=== PATIENT | female | born 1970 | race Caucasian/White ===

== ENCOUNTER 2023-04-24 16:59 | Emergency (ER) | payer OTHER, BC, SELFPAY ==
[2023-04-24] VITALS (18 sets, daily range): BP systolic 118–140; BP diastolic 74–91; PULSE 93–110; RESP 14–33; TEMP 36.7; O2SAT 98–100
--- NOTE | ~2023-04-24 | CT_ITS ---
Noncontrast CT scan of the cervical spine Technique: Multiple contiguous axial [address] images of the cervical spine were obtained and rec onstructed in 2D sagittal and coronal planes on the acquisition scanner. Dose reduction technique was used on this scan by utilizing automated exposure control, adjustment of the mA and/or kV according to patient size. The dose-length product (DLP) was 114.29 mGy-cm. Clinical History: Pain Findings: No fractures or dislocations. Unremarkable visualized bony structures. The intervertebral disc spaces are preserved. No prevertebral soft tissue swelling. Impression: No fracture or subluxation of the cervical spine. Reviewed, dictated and finalized at location . Impression: No fracture or subluxation of the cervical spine.
--- NOTE | ~2023-04-24 | CT_ITS ---
Non-contrast Head CT History: Trauma Technique: Axial non-contrast imaging of the brain was performed. Dose reduction technique was used on this scan by utilizing automated exposure control and iterative reconstruction technique. The dose -length product (DLP) was 605.33 mGy-cm. Findings: There is no evidence of intracranial hemorrhage, mass lesion, or acute infarct. Brain par enchyma appears normal. The ventricles and subarachnoid spaces are normal in size. The calvarium ap pears normal. The visualized paranasal sinuses and mastoid air cells are clear. Impression: No significant abnormality seen. Reviewed, dictated and finalized at location . Impression: No significant abnormality seen.
--- NOTE | 2023-04-24 17:09 | ECG_ITS ---
Measurements Intervals [place] Rate: 110 P: -90 NE: 131 QRS: 23 QRSD: 97 T: 80 QT: 261 QTc: 354 Interpretive Statements ECTOPIC ATRIAL TACHYCARDIA CANNOT RULE OUT SEPTAL INFARCT, AGE INDETERMINATE BORDERLINE ST-T WAVE ABNORMALITY- DIFFUSE LEADS BASELINE ARTIFACT- II, III ABNORMAL ECG NO PREVIOUS ECG AVAILABLE FOR COMPARISON Electronically Signed On 04-24-2023 20:54:43 CDT by Cody Fink D.O.
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
[2023-04-24 18:00] LABS: Basophils Percent Auto 0.4 % (0.2-1.2); Eosinophils Absolute Auto 0.2 K/mm3 (0-0.3); Eosinophils Percent Auto 2.6 % (0-4.4); Hematocrit 35.6 % (37.0-47.0); Hemoglobin 11.6 g/dL (12.0-15.0); Immature Granulocyte Absolute 0.03 K/mm3 (0.00-0.031); Immature Granulocyte Percent A 0.3 % (0-0.5); Lymphocytes Absolute Auto 1.89 K/mm3 (0.9-3.2); Lymphocytes Percent Auto 20.6 % (18.3-44.2); Mean Corpuscular HGB Conc 32.6 g/dl (32-36); Mean Corpuscular Hemoglobin 30.6 pg (26-34); Mean Corpuscular Volume 93.9 fl (80-100); Mean Platelet Volume 9.1 fl (7.4-10.4); Monocytes Absolute Auto 0.8 K/mm3 (0.1-0.6); Monocytes Percent Auto 8.4 % (2.6-8.5); Neutrophils Absolute Auto 6.2 K/mm3 (1.3-6.7); Neutrophils Percent Auto 67.7 % (45.5-73.1); Platelet Count Result 337 k/mm3 (150-375); Red Blood Count 3.79 M/mm3 (4.2-5.4); Red Cell Distribution Width 12.1 % (11.5-14.5); White Blood Count 9.2 K/mm3 (4.5-10.0)
[2023-04-24 18:09] LABS: Ethanol < 10 mg/dL (<10)
[2023-04-24 18:36] LABS: Appearance Urine Clear (Clear); Bacteria Urine None Seen /hpf; Bilirubin Urine Negative (Negative); Blood Urine Negative (Negative); Color Urine Yellow (Yellow); Glucose Urine UA Negative (Negative); Ketones Urine Negative (Negative); Leukocyte Esterase Ur 1+ LEU/UL (Negative); Nitrate Urine Negative (Negative); Non Pathogenic Casts 0-2; Protein Urine Trace mg/dL (Negative); RBC Urine 0-2 /hpf (0-2); Specific Grav Ur 1.016 (1.001-1.035); Squamous Epithelial Cell Urine Few /hpf (Few); Urobilinogen Urine 0.2 mg/dL (<2.0); pH Urine 5.5 (5.0-9.0)
[2023-04-24 18:38] LABS: Add Urine Microscopic? YES
[2023-04-24 18:50] LABS: Alanine Aminotransferase 30 U/L (6-35); Albumin Level 4.2 g/dL (3.5-5.1); Alkaline Phosphatase 64 U/L (38-126); Anion Gap 9 mmol/L (8-16); Aspartate Amino Transferase 28 U/L (14-36); Bilirubin,Total 0.3 mg/dL (0.2-1.3); Blood Urea Nitrogen 14 mg/dL (7-17); Calcium 8.9 mg/dL (8.4-10.2); Carbon Dioxide 27 mmol/L (22-30); Chloride 103 mmol/L (98-107); Estimated CRCL calculation 80 ml/min; Estimated Glomerular Filt Rate > 60; Glucose 127 mg/dL (65-110); Potassium 2.8 mmol/L (3.4-5.0); Sodium 139 mmol/L (137-145)
--- NOTE | 2023-04-24 19:00 | PC.NURSE ---
Assumed care of pt. Report given by KAREN Chavez.
[2023-04-24] MEDS: POTASSIUM BICARBONATE 25 MEQ TABEF 50 MEQ PO (20:17)
[2023-04-24 20:21] LABS: Magnesium 1.5 mg/dL (1.6-2.3)
[2023-04-24] MEDS: MAGNESIUM CHLORIDE 64 MG TABLET PO (22:23)
== END 2023-04-24 22:35 | disposition home or self-care (01) ==
PROVIDERS: Emergency Provider Student in an Organized Health Care Education/Training Program; PCP Family Medicine
DX: S09.90XA Unspecified injury of head, initial encounter (principal); E87.6 Hypokalemia; E83.42 Hypomagnesemia; V47.5XXA Car driver injured in collision with fixed or stationary object in traffic accident, initial encounter
CPT/HCPCS: 36415; 70450; 72125; 80053; 80307; 81001; 81025; 83735; 85025; 87086; 87147; 87181; 87186; 93005; 99284; A9270

== ENCOUNTER 2024-12-21 16:35 | Emergency (ER) | payer BC, SELFPAY ==
--- NOTE | ~2024-12-21 | XR_ITS ---
XR chest 1V Ordering provider: Grace Castro PA-C History: 54 years Female with . AMS . Comparison: None. FINDINGS: MEDIASTINUM: The cardiac silhouette is not enlarged. LUNGS: No infiltrates, effusions or pneumothorax. OTHER: No free air under the diaphragm. IMPRESSION: No acute cardiopulmonary pathology. Reviewed, dictated and finalized at location A.
--- NOTE | ~2024-12-21 | CT_ITS ---
CT brain wo con Ordering provider: Grace Castro PA-C History: 54 years Female with . AMS, head injury yesterday . Comparison: None. Technique: CT of the head without contrast. Radiation reduction technique utilized.The dose-length pr oduct was 787.51 mGy-cm. FINDINGS: BRAIN PARENCHYMA AND CSF SPACES: No midline shift, mass effect or hemorrhage. The brain parenchyma a nd CSF spaces are otherwise normal. VISUALIZED PARANASAL SINUSES: Well aerated. MASTOIDS: Well aerated. BONES: The bones appear intact. SOFT TISSUES: Visualized nasopharynx is normal. Superficial soft tissues are normal. IMPRESSION: No acute intracranial findings. Reviewed, dictated and finalized at location A.
--- NOTE | ~2024-12-21 | CT_ITS ---
CT cervical spine wo con Ordering provider: Grace Castro PA-C History: . head injury yesterday . Comparison: May 21, 2023 Technique: CT of the cervical spine was performed without contrast. Sagittal and coronal reformatted images were also obtained and reviewed. Automated exposure control and iterative reconstruction katie hnique were employed. The dose-length product was 246.00 mGy-cm. FINDINGS: VERTEBRAE: No subluxation or acute fracture. The occipital condyles are intact. Bifid posterior arch of C1. DISC SPACES: Narrowing of the disc C6-C7. Narrowing of the right foramen at the level of C5-C6 and C6 -7. Multilevel uncovertebral joint osteoarthritic changes PARASPINOUS SOFT TISSUES: Normal. 4 mm nodule is seen in the right lung upper lobe . 6 months follow-up CT is advised. IMPRESSION: No acute osseous abnormality cervical spine. Degenerative disc changes at the level of C6-C7. Nodule in the right lung upper lobe. 6 follow-up CT is Reviewed, dictated and finalized at location A.
[2024-12-21 16:45] VITALS: BP 121/73; PULSE 95; RESP 18; TEMP 36.6; O2SAT 98
[2024-12-21 16:46] VITALS: BP 121/73; PULSE 96; RESP 21; TEMP 36.7; O2SAT 98
--- NOTE | 2024-12-21 17:28 | ECG_ITS ---
Test Date: 2024-12-21 19:15:26 Measurements Intervals [place] Rate: 85 P: 68 PA: 171 QRS: 62 QRSD: 92 T: 71 QT: 400 QTc: 478 Interpretive Statements SINUS RHYTHM No previous ECG available for comparison Electronically Signed On 12-21-2024 19:18:15 CDT by Bony Rodgers
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
[2024-12-21 18:00] VITALS: BP 114/72; PULSE 89; RESP 16; O2SAT 98
[2024-12-21 18:06] LABS: Basophils Absolute Auto 0.1 K/mm3 (0.0-0.1); Basophils Percent Auto 0.9 % (0.2-1.2); Eosinophils Absolute Auto 0.3 K/mm3 (0-0.3); Eosinophils Percent Auto 3.2 % (0-4.4); Hematocrit 39.5 % (37.0-47.0); Hemoglobin 12.6 g/dL (12.0-15.0); Immature Granulocyte Absolute 0.07 K/mm3 (0.00-0.031); Immature Granulocyte Percent A 0.9 % (0-0.5); Lymphocytes Absolute Auto 2.61 K/mm3 (0.9-3.2); Lymphocytes Percent Auto 32.1 % (18.3-44.2); Mean Corpuscular HGB Conc 31.9 g/dl (32-36); Mean Corpuscular Hemoglobin 29.6 pg (26-34); Mean Corpuscular Volume 92.9 fl (80-100); Mean Platelet Volume 8.4 fl (7.4-10.4); Monocytes Absolute Auto 0.7 K/mm3 (0.1-0.6); Monocytes Percent Auto 9.1 % (2.6-8.5); Neutrophils Absolute Auto 4.4 K/mm3 (1.3-6.7); Neutrophils Percent Auto 53.8 % (45.5-73.1); Platelet Count Result 391 k/mm3 (150-375); Red Blood Count 4.25 M/mm3 (4.2-5.4); Red Cell Distribution Width 13.3 % (11.5-14.5); White Blood Count 8.1 K/mm3 (4.5-10.0)
[2024-12-21] MEDS: LORazepam INJ (*CRX) 2 MG/ML VIAL 1 MG IV PUSH (18:18)
[2024-12-21 18:21] LABS: Alanine Aminotransferase 24 U/L (6-35); Albumin Level 4.5 g/dL (3.5-5.1); Alkaline Phosphatase 78 U/L (38-126); Anion Gap 11 mmol/L (4-12); Aspartate Amino Transferase 38 U/L (14-36); Bilirubin,Total 0.3 mg/dL (0.2-1.3); Blood Urea Nitrogen 22 mg/dL (7-17); Calcium 8.6 mg/dL (8.4-10.2); Carbon Dioxide 26 mmol/L (22-30); Chloride 108 mmol/L (98-107); Estimated CRCL calculation 69 ml/min; Estimated Glomerular Filt Rate > 60; Ethanol 193 mg/dL (<10); Glucose 90 mg/dL (65-110); Potassium 4.3 mmol/L (3.4-5.0); Sodium 145 mmol/L (137-145)
[2024-12-21 18:30] VITALS: O2SAT 99
[2024-12-21 18:34] LABS: Add Urine Microscopic? NO; Appearance Urine Clear (Clear); Bilirubin Urine Negative (Negative); Blood Urine Negative (Negative); Color Urine Yellow (Yellow); Glucose Urine UA Negative (Negative); Ketones Urine Negative (Negative); Leukocyte Esterase Ur Negative LEU/UL (Negative); Nitrate Urine Negative (Negative); Protein Urine Negative (Negative); Specific Grav Ur 1.018 (1.001-1.035); Urobilinogen Urine 0.2 mg/dL (<2.0); pH Urine 6.5 (5.0-9.0)
[2024-12-21 18:34] LABS: Troponin I < 0.012 ng/mL (0.000-0.034)
[2024-12-21 18:47] LABS: Amphetamine Screen Urine Negative (Negative); Barbiturate Screen Urine Negative (Negative); Benzodiazepines Screen Urine Negative (Negative); Cannabinoid Screen Urine Negative (Negative); Cocaine Screen Urine Negative (Negative); Methadone Screen Urine Negative (Negative); Opiate Screen Urine Negative (Negative); Phencyclidine Screen Urine Negative (Negative)
[2024-12-21 18:52] LABS: Thyroid Stimulating Hormone 0.769 uIU/mL (0.465-4.680)
[2024-12-21 19:04] LABS: Creatine Kinase 52 U/L (30-135)
--- NOTE | 2024-12-21 19:09 | PC.NURSE ---
Pt & son in waiting room. Update given by aviation mechanic
[2024-12-21 20:32] VITALS: BP 107/72; PULSE 89; PULSE 90; RESP 16; O2SAT 98
[2024-12-21 23:46] VITALS: BP 128/87; PULSE 98; RESP 16; O2SAT 98
--- NOTE | 2024-12-21 23:47 | PC.NURSE ---
Pt given water and repositioned in bed. Call light within reach. No further requests at this time.
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
--- NOTE | 2024-12-22 01:11 | PC.NURSE ---
Pt moved from room 6 to room 19 per orders of discharge coordinator Mandy. Pt to see care coordination in the morning.
--- NOTE | 2024-12-22 03:54 | PC.NURSE ---
In to check on pt. Pt c/o headache and requesting meds. Will obtain orders.
[2024-12-22] MEDS: ACETAMINOPHEN 325 MG TABLET 650 MG PO (04:01)
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
--- NOTE | 2024-12-22 06:20 | PC.NURSE ---
Pt move from room 19 to room 1 per Lindsey assembly line inspector. Pt repositioned in bed and has no requests at this time.
[2024-12-22 07:15] VITALS: BP 131/89; PULSE 93; RESP 20; O2SAT 100
--- OUTSIDE RECORDS SUMMARY | 2024-12-22 15:02 | XMS_ITS | Encounter Summary ---
Author Organization [facility] Address [facility] [place] [address] Care Team Providers Care Mine Patrol Name Role Phone Araceli Bartlett MD Primary Care Provider [phone] Encounter Details Date Type Department Care Team (Late Contact Info) Description 07/22/2022 [employer] [facility][Note 3] Patient Accounts [address] [place] [address] [employer] [place], [facility] Provider Monthly Credit Card Payment Social History Tobacco Use Types Packs/Day Years Used Date Smoking Tobacco: Never Smokeless Tobacco: Never Alcohol Use Standard Drinks/Week Comments Never 0 (1 standard drink = 0.6 oz pur e alcohol) PHQ-2 Answer Date Recorded PHQ-2 Score - If the patient scores above 3, please move on to questions 3-9 0 05/12/2022 Comments No Sex and Gender Information Value Date Recorded Sex Assigned at Female 09/20/2024 2:28 PM ENGINE ASSEMBLER Legal Sex Female 7:13 PM CDT Gender Identity Female 09/25/2024 3:57 PM ENGINE ASSEMBLER Sexual Orientation Not on file COVID-19 Exposure Response Date Recorded In the last 10 days, have yo u been in contact with someone who was confirmed or suspected to have Coronavirus/COVID-19? No / Unsure 07/01/2022 9:07 AM ENGINE ASSEMBLER documented as of this encounter Plan of Treatment Upcoming Encounters Date Type Department Care Team (Late Contact Info) Description 12/27/2024 3:40 PM CDT Office Visit [facility] Family & Internal Medicine - [place] [address] [address] [place] [phone] [place] [address] [facility]. [address] [place] [address] 01/11/2025 9:40 AM CDT Office Visit [facility] Care - [facility] 3 [facility], [address] [place] [address] Taylor Zamora NP 3 [facility] [address] [place] [address] documented as of this encounter Visit Diagnoses Not on filedocumented in this encounter Additional Health Concerns Infection Onset Date Last Indicated Resolved Time Respiratory Rule-Out 10/18/2024 10/18/2024 025 4:46 PM ENGINE ASSEMBLER Assessment Noted Time PHQ-9 Depression Total Score: 0 05/12/20 22 2:48 PM CDT documented as of this encounter Care Teams Mine Patrol Relationship Specialty [place] [address] [facility] [address] [place] [address] PCP - General FAMILY PRACTICE 05/12/22 documented as of this encounter
--- OUTSIDE RECORDS SUMMARY | 2024-12-22 15:02 | XMS_ITS | Clinical Summary ---
Author Organization [facility] Address [address] [place] [address] Care Team Providers Care Biochemist Name Role Phone Yaneth Alan Primary Care Provider Unavailab le Source Comments [facility],non-owned Affiliates and Associated Physician Practices is amultiple site organization consisting of ambulatory clinics and hospital sitesin [place], [place], [place] and [place]. This disclosure is being madepursuant to the Care Everywhere program and may not contain all information available regarding this patient. Last updated 18.[facility] [employer] Active Problems Problem Noted Date Diagnosed Date Drug overdose of undetermined intent, initial en counter 10/27/2023 Social History Tobacco Use Types Packs/Day Years Used Date Smoking Tobacco: Never Assessed Comments Unknown Sex and Gender Information Value Date Recorded Sex Assigned at Not on file Legal Sex Female 5:51 PM INSOLE RASPER Gender Identity Not on file Sexual Orientation Not on file Plan of Treatment Health Maintenance Due Date Last Done Comments COLOGUARD (AGES 45-75) - COL ON CA SCREENING 1969 COLON MONITORING 1969 COLONOSCOPY - COLON CA SCREENING 1969 CT COLONOGRAPHY - COLON CA SCREENING 1969 Colorectal Cancer Screening 1969 FIT - COLON CA SCREENING 1969 FLEX SIG - COLON CA SCREENING 1969 LIPID TESTING 1969 MAMMOGRAM 1969 PAP SMEAR 1969 HIV SCREENING 1984 HEPATITIS C SCREENING 08/24/1987 DTAP/TDAP/TD VACCINES (1 - Tdap) 1988 HEPATITIS B VACCINE (1 of 3 - 19+ 3-dose series) 1988 PNEUMOCOCCAL VACCINE 50+ (1 of 1 - PCV) 2019 ZOSTER VACCINE (1 of 2) 2019 COVID-19 VACCINE (1 - 2023-2 5 season) 2024 DEPRESSION SCREENING 08/22/2024 INFLUENZA VACCINE (Season Ended) 2025 HIB VACCINE Aged Out No longer eligi ble based on patient's age to complete this topic HPV VACCINE Aged Out No longer eligi ble based on patient's age to complete this topic MENINGOCOCCAL (Group B) VACC INE SHARED DECISION-MAKING Aged Out No longer eligibl e based on patient's age to complete this topic MENINGOCOCCAL GROUPS A/C/Y/W VACCINE Aged Out No longer eligible b ased on patient's age to complete this topic Care Teams Biochemist Relationship Specialty Start Date End Date Yaneth Alan Update Information PCP - General 06/16/16
--- OUTSIDE RECORDS SUMMARY | 2024-12-22 15:02 | XMS_ITS | Encounter Summary ---
Author Organization [facility] Address [address] [place] [address] Care Team Providers Care Agri Business Agent Name Role Phone Cheryle Pitts NP Primary Care Provider Araceli Anderson MD Primary Care Provider [phone] Encounter Details Date Type Department Care Team (Late Contact Info) Description 08/21/2021 [employer] Message Enc [facility] Medical Group Family & Internal Medicine [address] [address] Cheryle Pitts, SANDY Sinus infection Social History Tobacco Use Types Packs/Day Years Used Date Smoking Tobacco: Never Smokeless Tobacco: Never Alcohol Use Standard Drinks/Week Comments Never 0 (1 standard drink = 0.6 oz pur e alcohol) PHQ-2 Answer Date Recorded PHQ-2 Score - If the patient scores above 3, please move on to questions 3-9 1 08/06/2021 Comments Unknown Sex and Gender Information Value Date Recorded Sex Assigned at Female 09/20/2024 2:28 PM COMPUTER NUMERICAL CONTROL PROGRAMMER Legal Sex Female 7:13 PM CDT Gender Identity Female 09/25/2024 3:57 PM COMPUTER NUMERICAL CONTROL PROGRAMMER Sexual Orientation Not on file COVID-19 Exposure Response Date Recorded In the last month, have you been in contact with someone who was confirmed or suspected to have Coronavirus / COVID-19? No / Unsure 08/06/2021 10:09 AM COMPUTER NUMERICAL CONTROL PROGRAMMER documented as of this encounter Plan of Treatment Upcoming Encounters Date Type Department Care Team (Late Contact Info) Description 12/27/2024 3:40 PM CDT Office Visit [facility] Family & Internal Medicine - [place] [address] [place] [phone] [place] [address] [facility]. [address] [place] [address] 01/11/2025 9:40 AM CDT Office Visit [facility] Multispecialty Care - [facility] 3 [facility], [address] [place] [address] Taylor Zamora NP 3 [facility] [address] [place] [address] documented as of this encounter Visit Diagnoses Not on filedocumented in this encounter Additional Health Concerns Infection Onset Date Last Indicated Resolved Time Respiratory Rule-Out 10/18/2024 10/18/2024 025 4:46 PM COMPUTER NUMERICAL CONTROL PROGRAMMER Assessment Noted Time PHQ-9 Depression Total Score: 1 08/06/20 21 10:29 AM COMPUTER NUMERICAL CONTROL PROGRAMMER documented as of this encounter Care Teams Agri Business Agent Relationship Specialty Start Date End Date Cheryle Pitts, GARMENT EXAMINER PCP - General NURSE PRACTITIONER 07/13/21 05/11/22 [place] [address] [facility] [place]. [address] [place] [address] PCP - General FAMILY PRACTICE 05/12/22 documented as of this encounter
--- OUTSIDE RECORDS SUMMARY | 2024-12-22 15:02 | XMS_ITS | Encounter Summary ---
Author Organization [facility] Address [address] [place] [address] Care Team Providers Care Drapery Supervisor Name Role Phone Cheryle Pitts NP Primary Care Provider Araceli Anderson MD Primary Care Provider [phone] Encounter Details Date Type Department Care Team (Late Contact Info) Description 07/27/2021 [employer] Message Enc [facility] Family & Internal Medicine [address] [address] Cheryle Pitts NP Follow-up appt. Social History Tobacco Use Types Packs/Day Years Used Date Smoking Tobacco: Never Smokeless Tobacco: Never PHQ-2 Answer Date Recorded PHQ-2 Score - If the patient scores above 3, please move on to questions 3-9 1 07/13/2021 Comments Unknown Sex and Gender Information Value Date Recorded Sex Assigned at Female 09/20/2024 2:28 PM PUBLIC SAFETY OFFICER Legal Sex Female 7:13 PM CDT Gender Identity Female 09/25/2024 3:57 PM PUBLIC SAFETY OFFICER Sexual Orientation Not on file COVID-19 Exposure Response Date Recorded In the last month, have you been in contact with someone who was confirmed or suspected to have Coronavirus / COVID-19? No / Unsure 07/13/2021 4:19 PM PUBLIC SAFETY OFFICER documented as of this encounter Plan of Treatment Upcoming Encounters Date Type Department Care Team (Late Contact Info) Description 12/27/2024 3:40 PM CDT Office Visit [facility] Family & Internal Medicine - [place] [address] [place] [phone] [place] [address] [facility] [place]. [address] [place] [address] 01/11/2025 9:40 AM CDT Office Visit [facility] Multispecialty Care - [facility] 3 [facility], [address] [place] [address] Taylor Zamora NP 3 [facility] [address] [place] [address] documented as of this encounter Visit Diagnoses Not on filedocumented in this encounter Additional Health Concerns Infection Onset Date Last Indicated Resolved Time Respiratory Rule-Out 10/18/2024 10/18/2024 025 4:46 PM PUBLIC SAFETY OFFICER Assessment Noted Time PHQ-9 Depression Total Score: 1 07/13/20 4:33 PM PUBLIC SAFETY OFFICER documented as of this encounter Care Teams Drapery Supervisor Relationship Specialty Start Date End Date Cheryle Pitts NP PCP - General NURSE PRACTITIONER 07/13/21 05/11/22 [place] [address] [facility] [place]. [address] [place] [address] PCP - General FAMILY PRACTICE 05/12/22 documented as of this encounter
--- OUTSIDE RECORDS SUMMARY | 2024-12-22 15:02 | XMS_ITS | Encounter Summary ---
Author Organization [facility] Address [address] [place] [address] Care Team Providers Care Dry Press Operator Name Role Phone Araceli Bartlett MD Primary Care Provider [phone] Encounter Details Date Type Department Care Team (Late st Contact Info) Description 09/15/2022 [employer] Message Enc [facility] Medical Group Family & Internal Medicine [facility] [address] [place] [address] [place] [id number] [place] [address] Appt. Social History Tobacco Use Types Packs/Day Years Used Date Smoking Tobacco: Never Smokeless Tobacco: Never Alcohol Use Standard Drinks/Week Comments Never 0 (1 standard drink = 0.6 oz pur e alcohol) PHQ-2 Answer Date Recorded Patient Health Questionnaire-2 Score 0 09/17/2022 Comments No Sex and Gender Information Value Date Recorded Sex Assigned at Female 09/20/2024 2:28 PM BULK PIGMENT REDUCER Legal Sex Female 7:13 PM CDT Gender Identity Female 09/25/2024 3:57 PM BULK PIGMENT REDUCER Sexual Orientation Not on file COVID-19 Exposure Response Date Recorded In the last 10 days, have yo u been in contact with someone who was confirmed or suspected to have Coronavirus/COVID-19? No / Unsure 09/17/2022 3:50 PM BULK PIGMENT REDUCER documented as of this encounter Functional Status * Over the past 2 weeks, how often have you been bothered by any of the following problems? Question Answer Date of Assessment Author Status Little interest or pleasure in doing things Not at all 09/17/2022 3:59 PM BULK PIGMENT REDUCER Cheryle Sharma MA Active Feeling down, depressed, or hopeless Not at all 09/17/2022 3:59 PM BULK PIGMENT REDUCER Cheryle Sharma MA Active Patient Health Questionnaire-2 Score 0 09/17/2022 3:59 PM BULK PIGMENT REDUCER Cheryle Sharma MA Act belkis documented as of this encounter Plan of Treatment Upcoming Encounters Date Type Department Care Team (Late st Contact Info) Description 12/27/2024 3:40 PM CDT Office Visit [facility] Family & Internal Medicine - [place] [address] [place] [address] [place] [address] [facility]. [address] [place] [address] 01/11/2025 9:40 AM CDT Office Visit [facility] Multispecialty Care - [facility] 3 [facility], [address] [place] [phone] Taylor Zamora NP 3 [facility] [address] [place] [address] documented as of this encounter Visit Diagnoses Not on filedocumented in this encounter Additional Health Concerns Infection Onset Date Last Indicated Resolved Time Respiratory Rule-Out 10/18/2024 10/18/2024 025 4:46 PM BULK PIGMENT REDUCER Assessment Noted Time PHQ-9 Depression Total Score: 0 05/12/20 22 2:48 PM CDT documented as of this encounter Care Teams Dry Press Operator Relationship Specialty [place] [address] [facility] [place] [address] PCP - General FAMILY PRACTICE 05/12/22 documented as of this encounter
--- OUTSIDE RECORDS SUMMARY | 2024-12-22 15:02 | XMS_ITS | Encounter Summary ---
Author Organization [facility] Address [address] [place] [address] Care Team Providers Care Centerless Grinder Operator Name Role Phone Araceli Bartlett MD Primary Care Provider [phone] Encounter Details Date Type Department Care Team (Late st Contact Info) Description 05/04/2023 MyChart Message Enc [facility] Family & Internal Medicine [address] [address] [place] [address] [facility]. [address] [place] [address] Follow up appt. Tomorrow Social History Tobacco Use Types Packs/Day Years Used Date Smoking Tobacco: Never Smokeless Tobacco: Never Alcohol Use Standard Drinks/Week Comments Never 0 (1 standard drink = 0.6 oz pur e alcohol) PHQ-2 Answer Date Recorded Patient Health Questionnaire-2 Score 0 01/05/2023 Comments No Sex and Gender Information Value Date Recorded Sex Assigned at Female 09/20/2024 2:28 PM POLICYHOLDER INFORMATION CLERK Legal Sex Female 7:13 PM CDT Gender Identity Female 09/25/2024 3:57 PM POLICYHOLDER INFORMATION CLERK Sexual Orientation Not on file documented as of this encounter Plan of Treatment Upcoming Encounters Date Type Department Care Team (Late st Contact Info) Description 12/27/2024 3:40 PM CDT Office Visit [facility] Family & Internal Medicine [facility] [address] [place] [address] [place] [address] [facility]. [address] [place] [address] 01/11/2025 9:40 AM CDT Office Visit [facility] Medical [facility] Multispecialty Care - [facility] 3 [facility], [address] [place] [phone] Taylor Zamora NP 3 [facility] [address] [place] [address] documented as of this encounter Visit Diagnoses Not on filedocumented in this encounter Additional Health Concerns Infection Onset Date Last Indicated Resolved Time Respiratory Rule-Out 10/18/2024 10/18/2024 025 4:46 PM POLICYHOLDER INFORMATION CLERK Assessment Noted Time PHQ-9 Depression Total Score: 0 05/12/20 22 2:48 PM CDT documented as of this encounter Care Teams Centerless Grinder Operator Relationship Specialty [place] [address] [facility] [place]. [address] [place] [id number] PCP - General FAMILY PRACTICE 05/12/22 documented as of this encounter
--- OUTSIDE RECORDS SUMMARY | 2024-12-22 15:02 | XMS_ITS | Encounter Summary ---
Author Organization [facility] Address [address] [place] [address] Care Team Providers Care Urologist Md Name Role Phone Cheryle Pitts NP Primary Care Provider Araceli Anderson MD Primary Care Provider [phone] Encounter Details Date Type Department Care Team (Late Contact Info) Description 09/17/2021 [employer] Message [employer] HEALTH INFORMATION MANAGEMENT [address] [place] [address] [employer], [facility] Provider Proxy Access Request Social History Tobacco Use Types Packs/Day Years [...] Sex Assigned at Female 09/20/2024 2:28 PM CONTENT DIRECTOR Legal Sex Female 7:13 PM CDT Gender Identity Female 09/25/2024 3:57 PM CONTENT DIRECTOR Sexual Orientation Not on file documented as of this encounter Plan of Treatment Upcoming Encounters Date Type Department Care Team (Late Contact Info) Description 12/27/2024 3:40 PM CDT Office Visit [facility] Medical Group Family & Internal Medicine [address] [address] Araceli Bartlett MD [address] [place] [address] [place] [address] 01/11/2025 9:40 AM CDT Office Visit [facility] Medical Group Multispecialty Care - [facility] 3 [facility], [address] [place] [address] Taylor Zamora, E LEARNING DEVELOPER 3 [facility] [address] [place] [address] documented as of this encounter Visit Diagnoses Not on filedocumented in this encounter Additional Health Concerns Infection Onset Date Last Indicated Resolved Time Respiratory Rule-Out 10/18/2024 10/18/2024 025 4:46 PM CONTENT DIRECTOR Assessment Noted Time PHQ-9 Depression Total Score: 1 08/06/20 10:29 AM CONTENT DIRECTOR documented as of this encounter Care Teams Urologist Md Relationship Specialty Start Date End Date Cheryle Pitts, SANDY PCP - General NURSE PRACTITIONER 07/13/21 05/11/22 [place] [address] [address] [place] [address] PCP - General FAMILY PRACTICE 05/12/22 documented as of this encounter
--- OUTSIDE RECORDS SUMMARY | 2024-12-22 15:02 | XMS_ITS | Clinical Summary ---
Author Organization [facility] Address [address] [place] [address] Care Team Providers Care Communications Coordinator Name Role Phone Araceli Vela MD Primary Care Provider [phone] Allergies Active Allergy Reactions Criticality Noted Date Comments Sulfamethoxazole-Trimethoprim Anxiety Low 2023 Medications amLODIPine (NORVASC) 5 MG tabletIndications :Primary hypertension Take 1.5 tablets (7.5 mg total) by mouth daily. 45 tablet 11 4 Active propranolol (INDERAL) 10 MG tabletIndications :Generalized anxiety disorder,Palpitat ions Take 1 tablet (10 mg total) by mouth 3 (three) times daily as needed (palpitatio ns , high heart rate or sever anxiety). Max 30 mg in 24 hrs 45 tablet 5 5 Active hydrOXYzine (VISTARIL) 50 MG capsuleIndication s:Generalized anxiety disorder Take 1 capsule (50 mg total) by mouth daily as needed for Anxiety (sleep). 30 capsule 3 5 Active hydrOXYzine (VISTARIL) 50 MG capsuleIndication s:Generalized anxiety disorder Take 1 capsule (50 mg total) by mouth daily as needed for Anxiety (sleep). 15 capsule 11 4 11/24/19 25 Discontinu ed(Reorder ) Active Problems Problem Noted Date Diagnosed Date Generalized anxiety disorder 05/18/2024 Primary hypertension 05/18/2024 Chronic anemia 05/18/2024 Amitriptyline overdose 10/27/2023 Drug overdose of undetermined intent, initial en counter 10/27/2023 Chronic migraine without aur a without status migrainosus, not intractable 05/13/2023 MGUS (monoclonal gammopathy of unknown significa nce) 09/30/2016 Encounters Date Type Department Care Team Description 11/23/2024 Orders Only [facility] [address] [phone] Iris Nuno 11/09/2024 2:40 PM CDT Allied Health/Nurse Visit [facility] [address] [phone] Araceli Vela MD Imm/Inj 11/09/2024 Travel 10/25/2024 7:40 AM TRAVERSE ROD ASSEMBLER Office Visit [address] [phone] Araceli Vela MD Anxiety; Headache 10/25/2024 Travel 10/18/2024 5:12 PM TRAVERSE ROD ASSEMBLER - 10/18/2024 11:59 PM TRAVERSE ROD ASSEMBLER Hospital Encounter [address] [phone] Mariza Horne, [place] Discharge Disposition: Home or Self Care (Routine Discharge) 10/18/2024 4:00 PM TRAVERSE ROD ASSEMBLER Office Visit [address] [phone] Mariza Horne, [place] Runny Nose (Sorethroat,, fatigue-x 2 days) 10/18/2024 Travel 10/17/[address] [phone] Araceli Vela MD Error 10/12/2024 Telephone [facility] [address] [phone] Araceli Vela MD Question 09/25/2024 4:20 PM TRAVERSE ROD ASSEMBLER Office Visit [facility] Family & Internal Medicine [facility] [address] [place] [address] Araceli Vela MD Follow Up 09/25/2024 8:58 AM TRAVERSE ROD ASSEMBLER - 09/25/2024 11:59 PM TRAVERSE ROD ASSEMBLER Hospital Encounter [facility] [address] [place] [address] Araceli Vela MD Discharge Disposition: Home or Self Care (Routine Discharge) 09/25/2024 Scan [facility] SRV[facility] Scanned, [facility] 09/25/2024 Travel from Last 3 Months Immunizations Immunization Administration Dates Next Due Flucelvax 6 Months+ (Prefill ed Syringe) 09/23/2017 Fluzone 6 Months+ Quad (0.5 mL Prefilled Syringe) 05/12/2022 Hepatitis B (Recombivax Hb 10 Mcg) 05/09/2024 Influenza (Generic) 06/19/2024, 3,09/09/2012,2010,11/23/2010 Influenza Adult (Generic) 07/12/2023,06/11/2015, 06/18/2014 MODERNA COVID-19 (12+) MRNA, LNP-S, PF, 100 MCG/ 0.5 ML DOSE 06/06/2021,05/09/2021 PFIZER COVID-19 (12+) MRNA, LNP-S, PF, MARGIE-SUCROSE, 30 MCG/0.3 ML (COMIRNATY) 11/09/2024 Pneumococcal (Generic) 11/23/2010 Shingrix 11/09/2024,05/09/2024 Td, Adsorbed, Preservative F ree, Adult Use, Lf Unspecified 05/22/2008 Tdap (Adacel) 10/25/2024 Family History Medical History Relation Comments No Known Problems Father Anxiety Mother Breast Cancer Neg Hx Relation Status Comments Father Mother Social History Tobacco Use Types Packs/Day Years Used Date Smoking Tobacco: Never Passive Smoke Exposure: Never Smokeless Tobacco: Never Tobacco Cessation:Counseling Given: No Alcohol Use Standard Drinks/Week Comments Never 0 (1 standard drink = 0.6 oz pur e alcohol) [facility] Utilities Answer Date Recorded In the past 12 months has th e [employer], [employer], oil, or water [employer] threatened to shut off services in your home? No 10/28/2023 Humiliation, Afraid, Rape, and Kick questionnair e Answer Date Recorded Within the last year, have y ou been afraid of your partner or ex-partner? No 10/28/2023 Within the last year, have y ou been humiliated or emotionally abused in other ways by your partner or ex-partner? No Within the last year, have y ou been kicked, hit, slapped, or otherwise physically hurt by your partner or ex-partner? No 10/28/2023 Within the last year, have y ou been raped or forced to have any kind of sexual activity by your partner or ex-partner? No 10/28/2023 Overall Financial Resource Strain (CARDIA) Answe r Date Recorded How hard is it for you to pa y for the very basics like food, housing, medical care, and heating? Not hard at all 10/28/2023 PHQ-2 Answer Date Recorded Patient Health Questionnaire-2 Score 1 10/18/2024 Hunger Vital Sign Answer Date Recorded Within the past 12 months, y ou worried that your food would run out before you got the money to buy more. Never true 10/28/19 24 Within the past 12 months, t he food you bought just didn't last and you didn't have money to get more. Never true 10/28/2023 PRAPARE - Transportation Answer Date Re corded In the past 12 months, has l ack of transportation kept you from medical appointments or from getting medications? Yes 03/2024 In the past 12 months, has l ack of transportation kept you from meetings, work, or from getting things needed for daily living? Yes 10/28/2023 Housing Stability Vital Sign Answer Delroy e Recorded In the last 12 months, was t here a time when you were not able to pay the mortgage or rent on time? Yes 10/28/2023 In the last 12 months, how many places have you lived? 1 10/28/2023 In the last 12 months, was t here a time when you did not have a steady place to sleep or slept in a mcc (including now)? No 10/28/2023 Comments No Sex and Gender Information Value Date Recorded Sex Assigned at Female 09/20/2024 2:28 PM TRAVERSE ROD ASSEMBLER Legal Sex Female 7:13 PM CDT Gender Identity Female 09/25/2024 3:57 PM TRAVERSE ROD ASSEMBLER Sexual Orientation Not on file Last Filed Vital Signs Vital Sign Reading Time Taken Comments Blood Pressure 129/81 10/25/2024 7:58 AM TRAVERSE ROD ASSEMBLER Pulse 96 10/25/2024 7:58 AM TRAVERSE ROD ASSEMBLER Temperature 36.2 C (97.1 F) 10/25/2024 7:58 AM TRAVERSE ROD ASSEMBLER Respiratory Rate 18 10/25/2024 7:58 AM TRAVERSE ROD ASSEMBLER Oxygen Saturation 100% 10/25/2024 7:58 AM TRAVERSE ROD ASSEMBLER Inhaled Oxygen Concentration - - Weight 51.7 kg (114 lb) 10/25/2024 7:58 AM TRAVERSE ROD ASSEMBLER Height 162.6 cm (5' 4 ) 10/25/2024 7:58 AM TRAVERSE ROD ASSEMBLER Body Mass Index 19.57 10/25/2024 7:58 AM TRAVERSE ROD ASSEMBLER Plan of Treatment Upcoming Encounters Date Type Department Care Team (Late st Contact Info) Description 12/27/2024 3:40 PM CDT Office Visit [facility] Family & Internal Medicine - [place] [phone] [place] [phone] [place]ela [place] [phone] [place] [address]. [address] [place] [address] 01/11/2025 9:40 AM CDT Office Visit [facility]ispecialty Care - [facility] 3 [facility], [address] [place] [phone] Taylor Zamora NP 3 [facility] [address] [place] [address] [phone] Health Maintenance Due Date Last Done Comments Cervical Cancer Screening Pa p Smear (Age 30 to 64) Every 3 Years 1969 Colorectal Cancer Screening Colonoscopy (10 Years) 1969 Hepatitis C 1987 Hepatitis B Vaccines (1 of 3 - 19+ 3-dose series) 1988 05/09/2024 Cervical Cancer Screening Pa p with HPV Testing (Age 30 to 64) Every 5 Years 1999 Cervical Cancer Screening wi th HPV 1999 Pneumococcal Vaccine: 50+ Years (1 of 1 - PCV) 2019 Annual Physical 05/09/2025 05/09/2024 Mammogram Screening 06/13/2026 06/13/2024 DTaP, Tdap and Td Vaccines ( 2 - Td or Tdap) 10/25/2034 10/25/2024, 05/22/2008 PHQ-2 (Physician [place]) Completed 10/18/2024 COVID-19 Vaccine Completed 11/09/2024, 06/06/2021, 05/09/2021 Zoster Vaccines Completed 11/09/2024, 05/09/2024 Meningococcal B Vaccine Aged Out No l onger eligible based on patient's age to complete this topic Meningococcal Vaccine Aged Out No deyanira juventino eligible based on patient's age to complete this topic RSV Immunizations Under 20 Months Aged Out No longer eligible b ased on patient's age to complete this topic Goals Goal Patient Goal Type Associated Problems Recent Progress Patient-Stated? Author Family Patient and family will have open conversation regarding patient goals and wishes for treatment Lifestyle No Iris White RN Procedures Procedure Name Priority Date/Time Associated Diagnosis Comments CULTURE STREP A Routine 10/18/2024 4:31 PM TRAVERSE ROD ASSEMBLER Sore throat STREP A RAPID Routine 10/18/2024 Sore throat CORONAVIRUS (COVID-19) INFLUENZA A & B ANTIGEN IA PANEL Routine 10/18/2024 Suspected COVID-19 virus infection BIOPSY Routine 09/25/2024 4:20 PM TRAVERSE ROD ASSEMBLER Atypical squamoproliferative skin lesion PATHOLOGY Routine 09/25/2024 12:00 AM TRAVERSE ROD ASSEMBLER History of skin cancer Atypical squamoproliferative skin lesion MG SCREENING W IVON ALFRED DIGI Routine 06/13/2024 3:28 PM CDT Encounter for screening mammogram for malignant neoplasm of breast from Last 3 Months or Most Recently Relevant to Health Maintenance Results * CULTURE STREP A (10/18/2024 4:31 PM TRAVERSE ROD ASSEMBLER) SPEC DESCRIPTION THROAT 10/18/2024 5:13 PM TRAVERSE ROD ASSEMBLER [facility] SPECIAL REQUESTS NO SPECIAL REQUEST 10/18/2024 5:13 PM TRAVERSE ROD ASSEMBLER [facility] CULTURE RESULT NO STREPTOCOCCUS PYOGENES (GROUP A) ISOLATED 10/20/2024 9:43 AM TRAVERSE ROD ASSEMBLER [facility] THROAT SWAB / Unknown 10/18/2024 4:31 PM TRAVERSE ROD ASSEMBLER 10/18/2024 5:14 PM TRAVERSE ROD ASSEMBLER Mariza BOOGIE MICROBIOLOGY - GENERAL ORDER JEFF Final Result Performing Organization Address City/[facility]/ZIP Co de Phone Number [facility] [address] [id number], [place] [phone] [facility] [address] [place] [address], [place] [phone] * CORONAVIRUS (COVID-19) INFLUENZA A & B ANTIGEN IA PANEL (10/18/2024) CORONAVIRUS ANTIGEN IA NEGATIVE NEGATIVE [id number], [place] INFLUENZA A NEGATIVE NEGATIVE [id number], [place] INFLUENZA B NEGATIVE NEGATIVE [id number], [place] Internal Control: VALID VALID [id number] [place] NASAL STRUCTURE / Unknown 10/18/2024 us Mariza BOOGIE MICROBIOLOGY - GENERAL ORDER JEFF Final Result [id number], [place] [address] [place] [address], [place] [phone] * STREP A RAPID (10/18/2024) RAPID STREP TEST NEGATIVE NEGATIVE -[id number] BROWN Internal Control: VALID VALID -[id number] BROWN STRUCTURE OF ANTERIOR PORTION OF NECK / Unknown 10/18/2024 Mariza BOOGIE MICROBIOLOGY - GENERAL ORDER JEFF Final Result -[id number] [facility] [address] [place] [address], * Lesion Biopsy (09/25/2024 4:20 PM TRAVERSE ROD ASSEMBLER) Narrative Araceli Vela MD - 09/25/2024 4:20 PM TRAVERSE ROD ASSEMBLER Araceli Vela MD 09/27/2024 8:10 AM Lesion Biopsy Date/Time: 09/25/2024 4:20 PM Performed by: Araceli Vela MD Authorized by: Araceli Vela MD Procedure Details - Skin Biopsy: Body area: trunk Trunk location: back Initial size (mm): 10 Final defect size (mm): 10 Malignancy: malignancy unknown Destruction method: shave biopsy Comments: Informed consent signed before procedure. Blockton blade used for excision. Patient tolerated the procedure well. Informed to keep covered for 24 to 48 hours. Seek medical care immediately in case of any concerns for infection Araceli Vela MD PROCEDURE/MINOR SURGICAL ORDER JEFF Final Result * PATHOLOGY (09/25/2024 12:00 AM TRAVERSE ROD ASSEMBLER) PATHOLOGY [facility] Department of Laboratory Medicine [address] [place] [address] , extension [phone] Pathology Report Surgical Pathology Report Name: ROBERTO CARLOS ARAGON Specimen #: [id number] Age: 1 1970 (Age: 54) Location: [facility] Sex: F Procedure Date: 09/25/2024 Hospital #: [id number] Date Received: 09/26/2024 Date Reported: 09/28/2024 Provider: ARACELI VELA MD Source: Skin, back, biopsy Clinical History: Atypical squamoproliferative skin lesion. History of skin cancer. FINAL DIAGNOSIS: Back, biopsy: Verruca vulgaris. See comment. Comment: The specimen is transected across the base and several foci. Based on the visible portions of the lesion, this is favored to be a verruca vulgaris. If the lesion persists/progresses additional tissue sampling is recommended to exclude a more aggressive component deep to planes of section. Gross Description: Received in formalin, labeled with a patient label and as back the 0.7 x 0.6 cm shave biopsy of multinodular white-mao skin. The specimen is inked black, bisected, and entirely submitted in cassette 1 Gross examination (when applicable) was performed at [facility], [address] [place] [address]. This case [place] [address]. Electronically Signed Out ROBERTO CARLOS WOOD MD [facility] 09/25/2024 09/26/2024 12: 17 PM TRAVERSE ROD ASSEMBLER Comment:Skin, back, biopsy Araceli Vela MD PATHOLOGY/CYTOLOGY ORDERABLES Final Result [facility] [address] [place] [address], [id number] * MG SCREENING W IVON ALFRED MARINI (06/13/2024 3:28 PM CDT) Anatomical Region Laterality Modality Breast Bilateral Mammography 06/15/2024 3:30 PM CDT Impressions 06/15/2024 3:31 PM CDT =====IMPRESSION:===== No mammographic findings suggestive of malignancy ASSESSMENT: ACR BI-RADS 2 - BENIGN FINDING(S) Recommendation: 1: Routine Screening Bilateral Ordered By: ARACELI VELA Interpreted By: Se Samuels MD, 06/15/2024 3:30 PM Narrative 06/15/2024 3:31 PM CDT [facility] [address] [place] [address] EXAMINATION: Digital bilateral screening mammogram with 3-D tomosynthesis EXAM DATE/TIME: 06/13/2024 2:53 PM REASON FOR EXAM: Routine screening. No current breast complaints. No reported/documented personal or first-degree relative family history of breast cancer, or prior breast procedure. COMPARISON: Screening mammograms 10/04/2016, 10/09/2014, 01/18/2013. TECHNIQUE: Digital screening mammography of both breasts was performed in addition to 3-D Tomosynthesis technique. This study was read with the assistance of a computer-aided detection system. TISSUE DENSITY: The breasts are heterogeneously dense, which may obscure small masses. FINDINGS: Scattered benign-appearing calcifications noted. No suspicious masses, malignant appearing calcifications, skin thickening or other abnormalities are present. No significant change from the prior exam. Araceli Vela MD MAMMO Final Result from Last 3 Months or Most Recently Relevant to Health Maintenance Insurance Advance Directives * Full Code (Latest Code Status on File) Date Activated Date Inactivated Comments 10/28/2023 8:13 PM 11/04/2023 5:48 PM Care Teams Communications Coordinator Relationship Specialty [place] [address] [place] [address] PCP - General FAMILY PRACTICE 05/12/22
--- OUTSIDE RECORDS SUMMARY | 2024-12-22 15:02 | XMS_ITS | Encounter Summary ---
Author Organization [facility] Address [address] [place] [address] Care Team Providers Care Process Development Manager Name Role Phone Araceli Bartlett MD Primary Care Provider [phone] Encounter Details Date Type Department Care Team (Late Contact Info) Description 05/12/2022 Bioclones Message [employer] [facility] Family & Internal Medicine [address] [phone] [facility] Provider medication refill & appointment Social History Tobacco Use Types Packs/Day Years [...] Sex Assigned at Female 09/20/2024 2:28 PM TOPLINE BEADING MACHINE TENDER Legal Sex Female 7:13 PM CDT Gender Identity Female 09/25/2024 3:57 PM TOPLINE BEADING MACHINE TENDER Sexual Orientation Not on file COVID-19 Exposure Response Date Recorded In the last 10 days, have yo u been in contact with someone who was confirmed or suspected to have Coronavirus/COVID-19? No / Unsure 05/12/2022 2:38 PM CDT documented as of this encounter Plan of Treatment Upcoming Encounters Date Type Department Care Team (Late Contact Info) Description 12/27/2024 3:40 PM CDT Office Visit [facility] Family & Internal Medicine - [place] [address] [place] [address] [place] [address] [facility] [place] [address] 01/11/2025 9:40 AM CDT Office Visit [facility] Multispecialty Care - [facility] 3 [facility], [address] [place] [address] Taylor Zamora NP 3 [facility] [address] [place] [address] documented as of this encounter Visit Diagnoses Not on filedocumented in this encounter Additional Health Concerns Infection Onset Date Last Indicated Resolved Time Respiratory Rule-Out 10/18/2024 10/18/2024 025 4:46 PM TOPLINE BEADING MACHINE TENDER Assessment Noted Time PHQ-9 Depression Total Score: 0 05/12/20 2:48 PM CDT documented as of this encounter Care Teams Process Development Manager Relationship Specialty [place] [address] [facility] [address] [place] [address] PCP - General FAMILY PRACTICE 05/12/22 documented as of this encounter
--- OUTSIDE RECORDS SUMMARY | 2024-12-22 15:02 | XMS_ITS | Encounter Summary ---
Author Organization [facility] Address [address] [place] [address] Care Team Providers Care Senior Security Analyst Name Role Phone Araceli Bartlett MD Primary Care Provider [phone] Encounter Details Date Type Department Care Team (Late st Contact Info) Description 07/02/[address] [facility] Family & Internal Medicine [facility] [address] [place] [phone] Ar[place] Bartlett [place] [id number] [place] [address]. [address] [place] [address] Scan Social History Tobacco Use Types Packs/Day Years [...] Sex Assigned at Female 09/20/2024 2:28 PM REGIONAL OPERATIONS DIRECTOR Legal Sex Female 7:13 PM CDT Gender Identity Female 09/25/2024 3:57 PM REGIONAL OPERATIONS DIRECTOR Sexual Orientation Not on file COVID-19 Exposure Response Date Recorded In the last 10 days, have yo u been in contact with someone who was confirmed or suspected to have Coronavirus/COVID-19? No / Unsure 07/01/2022 9:07 AM REGIONAL OPERATIONS DIRECTOR documented as of this encounter Progress Notes * Vee Quesada RN - 07/05/2022 9:21 AM CST Please advise. ONAL OPERATIONS DIRECTOR documented in this encounter Plan of Treatment Upcoming Encounters Date Type Department Care Team (Late st Contact Info) Description 12/27/2024 3:40 PM CDT Office Visit [facility] Family & Internal Medicine - [place] [address] [place] [address] [place] [address] [address] [place] [address] 01/11/2025 9:40 AM CDT Office Visit [facility]pecialty Care - [facility] 3 [facility], [address] [place] [address] Taylor Zamora NP 3 [facility] [address] [place] [address] documented as of this encounter Visit Diagnoses Not on filedocumented in this encounter Additional Health Concerns Infection Onset Date Last Indicated Resolved Time Respiratory Rule-Out 10/18/2024 10/18/2024 025 4:46 PM REGIONAL OPERATIONS DIRECTOR Assessment Noted Time PHQ-9 Depression Total Score: 0 05/12/20 2:48 PM CDT documented as of this encounter Care Teams Senior Security Analyst Relationship Specialty Start [place] [address] [address] [place] [address] PCP - General FAMILY PRACTICE 05/12/22 documented as of this encounter
--- OUTSIDE RECORDS SUMMARY | 2024-12-22 15:02 | XMS_ITS | Encounter Summary ---
Author Organization [facility] Address [address] [place] [address] Care Team Providers Care Allergist/Md Name Role Phone Araceli Bartlett MD Primary Care Provider [phone] Encounter Details Date Type Department Care Team (Late st Contact Info) Description 08/24/2022 Tailored Message Enc [facility] Family & Internal Medicine [facility] [address] [place] [phone] Araceli Bartlett [place] [phone] [place] [address] [place] [address] Psych follow up Social History Tobacco Use Types Packs/Day Years [...] Sex Assigned at Female 09/20/2024 2:28 PM QUALITY REVIEWER Legal Sex Female 7:13 PM CDT Gender Identity Female 09/25/2024 3:57 PM QUALITY REVIEWER Sexual Orientation Not on file COVID-19 Exposure Response Date Recorded In the last 10 days, have yo u been in contact with someone who was confirmed or suspected to have Coronavirus/COVID-19? No / Unsure 08/17/2022 2:26 PM QUALITY REVIEWER documented as of this encounter Progress Notes * Kadi Leyva MA - 08/25/2022 8:36 AM CST See patient message below. ITY REVIEWER documented in this encounter Plan of Treatment Upcoming Encounters Date Type Department Care Team (Late st Contact Info) Description 12/27/2024 3:40 PM CDT Office Visit [facility] Family & Internal Medicine - [place] [address] [place] [phone] [place] [address] [facility]. [address] [place] [address] 01/11/2025 9:40 AM CDT Office Visit [facility] Multispecialty Care - [facility] 3 [facility], [address] [place] [address] Taylor Zamora NP 3 [facility] [address] [place] [address] documented as of this encounter Visit Diagnoses Not on filedocumented in this encounter Additional Health Concerns Infection Onset Date Last Indicated Resolved Time Respiratory Rule-Out 10/18/2024 10/18/2024 025 4:46 PM QUALITY REVIEWER Assessment Noted Time PHQ-9 Depression Total Score: 0 05/12/20 22 2:48 PM CDT documented as of this encounter Care Teams Allergist/Md Relationship Specialty Start [place] [address] [facility]. [address] [place] [address] PCP - General FAMILY PRACTICE 05/12/22 documented as of this encounter
--- OUTSIDE RECORDS SUMMARY | 2024-12-22 15:02 | XMS_ITS | Encounter Summary ---
Author Organization [facility] - [facility] Address [address] [place] [address] Care Team Providers Care Waitangi Tribunal Member Name Role Phone Araceli Bartlett MD Primary Care Provider [phone] Encounter Details Date Type Department Care Team (Late st Contact Info) Description 01/23/2024 Nutritionix Message Enc [facility] Medical Group Multispecialty Care - [address], [address] [place] [address] Elvis, [facility] Provider Appt Social History Tobacco Use Types Packs/Day Years Used Date Smoking Tobacco: Never Smokeless Tobacco: Never Alcohol Use Standard Drinks/Week Comments Never 0 (1 standard drink = 0.6 oz pur e alcohol) [facility] Utilities Answer Date Recorded In the past [address] [facility] [employer], gas, oil, or water [employer] threatened to shut off services in your [...] Date Recorded Patient Health Questionnaire-2 Score 0 10/10/2023 Hunger Vital Sign Answer Date Recorded Within [...] place to sleep or slept in a prison (including now)? No 10/28/2023 Comments No Sex and Gender Information Value Date Recorded Sex Assigned at Female 09/20/2024 2:28 PM BACKEND DEVELOPER Legal Sex Female 7:13 PM CDT Gender Identity Female 09/25/2024 3:57 PM BACKEND DEVELOPER Sexual Orientation Not on file documented as of this encounter Functional Status * Are you deaf or do you have serious difficulty hearing Answer Date of Assessment Author Status No 10/27/2023 7:13 PM Mimi Nolasco RN Active * Are you blind or do you have serious difficulty seeing, even when wearing glasses? Answer Date of Assessment Author Status No 10/27/2023 7:13 PM Mimi Nolasco RN Active * Do you have serious difficulty walking or climbing stairs? Answer Date of Assessment Author Status No 10/27/2023 7:13 PM Mimi Nolasco RN Active * Do you have difficulty dressing or bathing? Answer Date of Assessment Author Status No 10/27/2023 7:13 PM Mimi Nolasco RN Active * Because of a physical, mental, or emotional condition, do you have difficulty doing errands alone such as visiting a doctor's office or shopping? Answer Date of Assessment Author Status No 10/27/2023 7:13 PM Mimi Nolasco RN Active documented as of this encounter Mental Status * Because of a physical, mental, or emotional condition, do you have serious difficulty concentrating, remembering, or making decisions? Answer Entry Date Author Status No 10/27/2023 7:13 PM Mimi Nolasco RN Active documented in this encounter Plan of Treatment Upcoming Encounters Date Type Department Care Team (Late st Contact Info) Description 12/27/2024 3:40 PM CDT Office Visit [facility] [address] [place] [address] [place] [id number] [place] [address]. [place] [address] 01/11/2025 9:40 AM CDT Office Visit [facility] Multispecialty Care - [address], [address] [place] [phone] Taylor Zamora NP 3 [facility] [address] [place] [address] documented as of this encounter Goals Goal Patient Goal Type Associated Problems Recent Progress Patient-Stated? Author Family Patient and family will have open conversation regarding patient goals and wishes for treatment Lifestyle No Iris White RN documented as of this encounter Visit Diagnoses Not on filedocumented in this encounter Additional Health Concerns Infection Onset Date Last Indicated Resolved Time Respiratory Rule-Out 10/18/2024 10/18/2024 025 4:46 PM BACKEND DEVELOPER Assessment Noted Time PHQ-9 Depression Total Score: 0 05/12/20 22 2:48 PM CDT documented as of this encounter Care Teams Waitangi Tribunal Member Relationship Specialty [place] [address] [address] [place] [address] PCP - General FAMILY PRACTICE 05/12/22 documented as of this encounter
--- OUTSIDE RECORDS SUMMARY | 2024-12-22 15:02 | XMS_ITS | Clinical Summary ---
Author Organization [facility] Address [address], [facility] [address] [place] [address] Phone Care Team Providers Care Consumer Analyst Name Role Phone Araceli Bartlett MD Primary Care Provider [phone] Allergies No known active allergies Medications zolpidem (AMBIEN) 10 MG Tablet TK 1 T PO QD HS 2 7 Active ClonazePAM 0.5 MG TABLET DISPERSIBLE Reported on 09/30/2016 0 7 Active ibuprofen (MOTRIN) 800 MG Tablet TK 1 T PO Q 8 H PRF PAIN 0 7 Active SUMAtriptan (IMITREX) 50 MG Tablet Reported on 09/30/2016 3 6 Active Active Problems Problem Noted Date Diagnosed Date MGUS (monoclonal gammopathy of unknown significa nce) 09/30/2016 Family History Medical History Relation Name Comments Seizures Sister Relation Name Status Comments Sister Social History Tobacco Use Types Packs/Day Years Used Date Smoking Tobacco: Never Comments Unknown Sex and Gender Information Value Date Recorded Sex Assigned at Not on file Legal Sex Female 11:35 AM TYPESETTER PERFORATOR OPERATOR Gender Identity Not on file Sexual Orientation Not on file Last Filed Vital Signs Vital Sign Reading Time Taken Comments Blood Pressure 118/74 09/30/2016 9:45 AM TYPESETTER PERFORATOR OPERATOR Pulse 84 09/30/2016 9:45 AM TYPESETTER PERFORATOR OPERATOR Temperature 36.8 C (98.3 F) 09/30/2016 9:45 AM TYPESETTER PERFORATOR OPERATOR Respiratory Rate - - Oxygen Saturation 99% 09/30/2016 9:45 AM TYPESETTER PERFORATOR OPERATOR Inhaled Oxygen Concentration - - Weight 63.5 kg (140 lb) 09/30/2016 9:45 AM TYPESETTER PERFORATOR OPERATOR Height 162.6 cm (5' 4 ) 09/30/2016 9:45 AM TYPESETTER PERFORATOR OPERATOR Body Mass Index 24.03 09/30/2016 9:45 AM TYPESETTER PERFORATOR OPERATOR Plan of Treatment Health Maintenance Due Date Last Done Comments Hepatitis C Virus (HCV) Screening 1969 TdaP Immunization 1969 Hepatitis B Immunization (1 of 3 - 19+ 3-dose series) 1988 Pap Smear 1990 Cervical Cancer Screening (CCS) 1999 HPV/Cotest 1999 Colonoscopy 2014 Colorectal Cancer Screening 2014 Cologuard 2019 Immunochemical Fecal Occult Blood 2019 Mammogram 2019 Pneumococcal Immunization (5 0+ years) (1 of 1 - PCV) 2019 Zoster Immunization (1 of 2) 2019 Influenza Immunization (#1) 2024 092 08/2021, 09/23/2017 SARS-COV-2 Immunization ( season) 2024 06/06/2021, 05/09/2021 Respiratory Syncytial Virus (RSV) Immunization (Adult) (1 - 1-dose 75+ series) 2044 Meningococcal Immunization (ACWY) Aged Out No longer eligible b ased on patient's age to complete this topic Pneumococcal Immunization Combined Aged Out No longer eligible b ased on patient's age to complete this topic Rotavirus Immunization Aged Out No lo nger eligible based on patient's age to complete this topic Insurance [facility] Care Teams Consumer Analyst Relationship Specialty [place] [address] [address] PCP - General Family Medicine 02/11/23
--- OUTSIDE RECORDS SUMMARY | 2024-12-22 15:02 | XMS_ITS | Encounter Summary ---
Author Organization [facility] Address [address] [place] [address] Care Team Providers Care Drawbench Operator Helper Name Role Phone Cheryle Pitts WILLOW MACHINE OPERATOR Primary Care Provider Araceli Anderson MD Primary Care Provider [phone] Encounter Details Date Type Department Care Team (Late Contact Info) Description 09/29/2021 MyChart Message Enc [facility] Family & Internal Medicine [address] [address] Cheryle Pitts, SANDY Help with refills? Social History Tobacco Use Types Packs/Day Years [...] Sex Assigned at Female 09/20/2024 2:28 PM SCANNER OPERATOR Legal Sex Female 7:13 PM CDT Gender Identity Female 09/25/2024 3:57 PM SCANNER OPERATOR Sexual Orientation Not on file documented as of this encounter Plan of Treatment Upcoming Encounters Date Type Department Care Team (Late Contact Info) Description 12/27/2024 3:40 PM CDT Office Visit [facility] Family & Internal Medicine [facility] [address] [place] [address] [place] [address] [address] [place] [address] 01/11/2025 9:40 AM CDT Office Visit [facility] Medical Group Multispecialty Care - [facility] 3 [facility], [address] [place] [address] Taylor Zamora, SANDY 3 [facility] [address] [place] [address] documented as of this encounter Visit Diagnoses Not on filedocumented in this encounter Additional Health Concerns Infection Onset Date Last Indicated Resolved Time Respiratory Rule-Out 10/18/2024 10/18/2024 025 4:46 PM SCANNER OPERATOR Assessment Noted Time PHQ-9 Depression Total Score: 1 08/06/20 10:29 AM SCANNER OPERATOR documented as of this encounter Care Teams Drawbench Operator Helper Relationship Specialty Start Date End Date Cheryle Pitts NP PCP - General NURSE PRACTITIONER 07/13/21 05/11/22 [place] [address] [address] [place] [address] PCP - General FAMILY PRACTICE 05/12/22 documented as of this encounter
--- OUTSIDE RECORDS SUMMARY | 2024-12-22 15:02 | XMS_ITS | Encounter Summary ---
Author Organization [facility] Address [address] [place] [address] Care Team Providers Care Computer Assistant Name Role Phone Araceli Bartlett MD Primary Care Provider [phone] Encounter Details Date Type Department Care Team (Late Contact Info) Description 10/27/2022 CrowdTangle Message Enc [facility] Family & Internal Medicine [address] [address] [facility] Provider Due for follow up appt Social History Tobacco Use Types Packs/Day Years Used Date Smoking Tobacco: Never Smokeless Tobacco: Never Alcohol Use Standard Drinks/Week Comments Never 0 (1 standard drink = 0.6 oz pur e alcohol) PHQ-2 Answer Date Recorded Patient Health Questionnaire-2 Score 0 09/17/2022 Comments No Sex and Gender Information Value Date Recorded Sex Assigned at Female 09/20/2024 2:28 PM TECHNICAL WRITER AND EDITOR Legal Sex Female 7:13 PM CDT Gender Identity Female 09/25/2024 3:57 PM TECHNICAL WRITER AND EDITOR Sexual Orientation Not on file documented as of this encounter Plan of Treatment Upcoming Encounters Date Type Department Care Team (Late Contact Info) Description 12/27/2024 3:40 PM CDT Office Visit [facility] Family & Internal Medicine [address] [address] Araceli Bartlett MD [address] [place] [address]. [address] [place] [address] 01/11/2025 9:40 AM CDT Office Visit [facility] Medical Group Multispecialty Care - [facility] 3 [facility], [address] [place] [address] Taylor Zamora, INSPECTOR FIBROUS WALLBOARD 3 [facility] [address] [place] [address] documented as of this encounter Visit Diagnoses Not on filedocumented in this encounter Additional Health Concerns Infection Onset Date Last Indicated Resolved Time Respiratory Rule-Out 10/18/2024 10/18/2024 025 4:46 PM TECHNICAL WRITER AND EDITOR Assessment Noted Time PHQ-9 Depression Total Score: 0 05/12/20 22 2:48 PM CDT documented as of this encounter Care Teams Computer Assistant Relationship Specialty [place] [address] [address] [place] [address] PCP - General FAMILY PRACTICE 05/12/22 documented as of this encounter
--- OUTSIDE RECORDS SUMMARY | 2024-12-22 15:02 | XMS_ITS | Encounter Summary ---
Author Organization [facility] Address [address] [place] [address] Care Team Providers Care Graphics Manager Name Role Phone Cheryle Pitts NP Primary Care Provider Araceli Anderson MD Primary Care Provider [phone] Encounter Details Date Type Department Care Team (Latest Contact Info) Description 01/25/2022 [facility] Provider Past Due Payment Plan Social History Tobacco Use Types Packs/Day Years [...] Sex Assigned at Female 09/20/2024 2:28 PM TUTOR COORDINATOR Legal Sex Female 7:13 PM CDT Gender Identity Female 09/25/2024 3:57 PM TUTOR COORDINATOR Sexual Orientation Not on file documented as of this encounter Plan of Treatment Upcoming Encounters Date Type Department Care Team (Late st Contact Info) Description 12/27/2024 3:40 PM CDT Office Visit [facility] Medical Group Family & Internal Medicine [address] [address] Araceli Bartlett MD [address] [place] [address] [place] [address] 01/11/2025 9:40 AM CDT Office Visit [facility] Medical Group Multispecialty Care - [facility] 3 [facility], [address] [place] [address] Taylor Zamora, CAN CUTTER 3 [facility] [address] [place] [address] documented as of this encounter Visit Diagnoses Not on filedocumented in this encounter Additional Health Concerns Infection Onset Date Last Indicated Resolved Time Respiratory Rule-Out 10/18/2024 10/18/2024 025 4:46 PM TUTOR COORDINATOR Assessment Noted Time PHQ-9 Depression Total Score: 1 08/06/20 21 10:29 AM TUTOR COORDINATOR documented as of this encounter Care Teams Graphics Manager Relationship Specialty Start Date End Date Cheryle Pitts NP PCP - General NURSE PRACTITIONER 07/13/21 05/11/22 [place] [address] [address] [place] [address] PCP - General FAMILY PRACTICE 05/12/22 documented as of this encounter
--- OUTSIDE RECORDS SUMMARY | 2024-12-22 15:02 | XMS_ITS | Encounter Summary ---
Author Organization [facility] Address [address] [place] [address] Care Team Providers Care Rock Singer Name Role Phone Araceli Bartlett MD Primary Care Provider [phone] Encounter Details Date Type Department Care Team ([facility] Contact Info) Description 06/17/2022 WaveRx Message [facility] Medical Group Family & Internal Medicine [address] [address] [facility] Provider medication and appointment Social History Tobacco Use Types Packs/Day [...] Sex Assigned at Female 09/20/2024 2:28 PM PATTERNMAKER WOOD Legal Sex Female 7:13 PM CDT Gender Identity Female 09/25/2024 3:57 PM PATTERNMAKER WOOD Sexual Orientation Not on file COVID-19 Exposure Response Date Recorded In the last 10 days, have yo u been in contact with someone who was confirmed or suspected to have Coronavirus/COVID-19? No / Unsure 06/11/2022 2:25 PM CDT documented as of this encounter Plan of Treatment Upcoming Encounters Date Type Department Care Team (Late Contact Info) Description 12/27/2024 3:40 PM CDT Office Visit [facility] Family & Internal Medicine - [place] [address] [place] [phone] [place] [address] [facility]. [address] [place] [address] 01/11/2025 9:40 AM CDT Office Visit [facility] Multispecialty Care - [facility] 3 [facility], [address] [place] [address] Taylor Zamora NP 3 [facility] [address] [place] [address] documented as of this encounter Visit Diagnoses Not on filedocumented in this encounter Additional Health Concerns Infection Onset Date Last Indicated Resolved Time Respiratory Rule-Out 10/18/2024 10/18/2024 025 4:46 PM PATTERNMAKER WOOD Assessment Noted Time PHQ-9 Depression Total Score: 0 05/12/20 22 2:48 PM CDT documented as of this encounter Care Teams Rock Singer Relationship Specialty [place] [address] [facility] [address] [place] [address] PCP - General FAMILY PRACTICE 05/12/22 documented as of this encounter
--- OUTSIDE RECORDS SUMMARY | 2024-12-22 15:02 | XMS_ITS | Encounter Summary ---
Author Organization [facility] Address [address] [place] [address] Care Team Providers Care Valet Attendant Name Role Phone None, Provider Primary Care Provider Cheryle Lewis NP Primary Care Provider Araceli Anderson MD Primary Care Provider [phone] Encounter Details Date Type Department Care Team (Late st Contact Info) Description 07/02/2021 MyChart Message Enc [facility] Family & Internal Medicine [facility] [address] [place] [address] Cheryle Pitts, BOOM OPERATOR Appointment on 07/03/21 Social History Tobacco Use Types Packs/Day Years Used Date Smoking Tobacco: Never Assessed Smokeless Tobacco: Never Comments Unknown Sex and Gender Information Value Date Recorded Sex Assigned at Female 09/20/2024 2:28 PM TOOL CRIB SUPERVISOR Legal Sex Female 7:13 PM CDT Gender Identity Female 09/25/2024 3:57 PM TOOL CRIB SUPERVISOR Sexual Orientation Not on file documented as of this encounter Plan of Treatment Upcoming Encounters Date Type Department Care Team (Late st Contact Info) Description 12/27/2024 3:40 PM CDT Office Visit [facility] Family & Internal Medicine [facility] [address] [place] [address] Araceli Bartlett MD [address] [place] [address]. [address] [place] [address] 01/11/2025 9:40 AM CDT Office Visit [facility] Medical Group Multispecialty Care - [facility] 3 [facility], [address] [place] [address] Tayolr Zamora, BOOM OPERATOR 3 [facility] [address] [place] [address] documented as of this encounter Visit Diagnoses Not on filedocumented in this encounter Additional Health Concerns Infection Onset Date Last Indicated Resolved Time Respiratory Rule-Out 10/18/2024 10/18/2024 025 4:46 PM TOOL CRIB SUPERVISOR documented as of this encounter Care Teams Valet Attendant Relationship Specialty Start Date End Date None, Provider, PCP - General 11/15/19 07/12/21 Cheryle Pitts, SANDY PCP - General NURSE PRACTITIONER 07/13/21 05/11/22 [place] [address] [address] [place] [address] PCP - General FAMILY PRACTICE 05/12/22 documented as of this encounter
--- OUTSIDE RECORDS SUMMARY | 2024-12-22 15:02 | XMS_ITS | Encounter Summary ---
Author Organization [facility] Address [address] [place] [address] Care Team Providers Care Entertainment Dancer Name Role Phone Araceli Bartlett MD Primary Care Provider Encounter Details Date Type Department Care Team (Late Contact Info) Description 08/09/2023 ExceleraRx Message Enc [facility] Multispecialty Care - [address], [address] [place] [address] [facility] Provider medication Social History Tobacco Use Types Packs/Day Years Used Date Smoking Tobacco: Never Smokeless Tobacco: Never Alcohol Use Standard Drinks/Week Comments Never 0 (1 standard drink = 0.6 oz pur e alcohol) PHQ-2 Answer Date Recorded Patient Health Questionnaire-2 Score 0 01/05/2023 Comments No Sex and Gender Information Value Date Recorded Sex Assigned at Female 09/20/2024 2:28 PM SURVEILLANCE SYSTEMS ANALYST Legal Sex Female 7:13 PM CDT Gender Identity Female 09/25/2024 3:57 PM SURVEILLANCE SYSTEMS ANALYST Sexual Orientation Not on file documented as of this encounter Plan of Treatment Upcoming Encounters Date Type Department Care Team (Late Contact Info) Description 12/27/2024 3:40 PM CDT Office Visit [facility] Family & Internal Medicine [address] [address] Araceli Bartlett [place] [address] [place] [address]. [address] [place] [address] 01/11/2025 9:40 AM CDT Office Visit [facility] Medical Group Multispecialty Care - [facility] 3 [facility], [address] [place] [address] Taylor Zamora, SANDY 3 [facility] [address] [place] [address] documented as of this encounter Visit Diagnoses Not on filedocumented in this encounter Additional Health Concerns Infection Onset Date Last Indicated Resolved Time Respiratory Rule-Out 10/18/2024 10/18/2024 025 4:46 PM SURVEILLANCE SYSTEMS ANALYST Assessment Noted Time PHQ-9 Depression Total Score: 0 05/12/20 22 2:48 PM CDT documented as of this encounter Care Teams Entertainment Dancer Relationship Specialty [place] [address] [address] [place] [address] PCP - General FAMILY PRACTICE 05/12/22 documented as of this encounter
--- OUTSIDE RECORDS SUMMARY | 2024-12-22 15:02 | XMS_ITS | Encounter Summary ---
Author Organization [facility] Address [address] [place] [address] Care Team Providers Care Adjunct English Instructor Name Role Phone Araceli Bartlett MD Primary Care Provider [phone] Encounter Details Date Type Department Care Team (Late st Contact Info) Description 11/18/2022 WGT Media Message Enc [facility] Medical Group Family & Internal Medicine [facility] [address] [place] [address] Bri Schafer, APPLIED EXERCISE PHYSIOLOGIST [address] [address] Test results Social History Tobacco Use Types Packs/Day Years Used Date Smoking Tobacco: Never Smokeless Tobacco: Never Alcohol Use Standard Drinks/Week Comments Never 0 (1 standard drink = 0.6 oz pur e alcohol) PHQ-2 Answer Date Recorded Patient Health Questionnaire-2 Score 0 09/17/2022 Comments No Sex and Gender Information Value Date Recorded Sex Assigned at Female 09/20/2024 2:28 PM SEWING MACHINE OPERATOR PAPER BAGS Legal Sex Female 7:13 PM CDT Gender Identity Female 09/25/2024 3:57 PM SEWING MACHINE OPERATOR PAPER BAGS Sexual Orientation Not on file COVID-19 Exposure Response Date Recorded In the last 10 days, have yo u been in contact with someone who was confirmed or suspected to have Coronavirus/COVID-19? No / Unsure 11/16/2022 2:59 PM CDT documented as of this encounter Plan of Treatment Upcoming Encounters Date Type Department Care Team (Late st Contact Info) Description 12/27/2024 3:40 PM CDT Office Visit [facility] Family & Internal Medicine - [place] [address] [place] [address] [place] [address] [facility] [place]. [address] [place] [address] 01/11/2025 9:40 AM CDT Office Visit [facility] Multispecialty Care - [facility] 3 [facility], [address] [place] [address] Taylor Zamora NP 3 [facility] [address] [place] [address] documented as of this encounter Visit Diagnoses Not on filedocumented in this encounter Additional Health Concerns Infection Onset Date Last Indicated Resolved Time Respiratory Rule-Out 10/18/2024 10/18/2024 025 4:46 PM SEWING MACHINE OPERATOR PAPER BAGS Assessment Noted Time PHQ-9 Depression Total Score: 0 05/12/20 22 2:48 PM CDT documented as of this encounter Care Teams Adjunct English Instructor Relationship Specialty Start [place] [address] [address] [place] [address] PCP - General FAMILY PRACTICE 05/12/22 documented as of this encounter
--- OUTSIDE RECORDS SUMMARY | 2024-12-22 15:02 | XMS_ITS | Encounter Summary ---
Author Organization [facility] Address [address] [place] [address] Care Team Providers Care Houseperson Name Role Phone Araceli Bartlett MD Primary Care Provider [phone] Encounter Details Date Type Department Care Team (Late Contact Info) Description 11/24/2022 crowd[employer] Message Enc [facility] [id number] [place] [phone] Elvis[facility] Provider Usha Social History Tobacco Use Types Packs/Day Years Used Date Smoking Tobacco: Never Smokeless Tobacco: Never Alcohol Use Standard Drinks/Week Comments Never 0 (1 standard drink = 0.6 oz pur e alcohol) PHQ-2 Answer Date Recorded Patient Health Questionnaire-2 Score 0 09/17/2022 Comments No Sex and Gender Information Value Date Recorded Sex Assigned at Female 09/20/2024 2:28 PM BRICK SHADER Legal Sex Female 7:13 PM CDT Gender Identity Female 09/25/2024 3:57 PM BRICK SHADER Sexual Orientation Not on file COVID-19 Exposure Response Date Recorded In the last 10 days, have yo u been in contact with someone who was confirmed or suspected to have Coronavirus/COVID-19? No / Unsure 11/16/2022 2:59 PM CDT documented as of this encounter Plan of Treatment Upcoming Encounters Date Type Department Care Team (Late Contact Info) Description 12/27/2024 3:40 PM CDT Office Visit [facility] [place] [address] [place] [phone] [place] [address] [facility] [address] [place] [address] 01/11/2025 9:40 AM CDT Office Visit [facility] Medical Group Multispecialty Care - [facility] [address] [facility], [address] [place] [address] Taylor Zamora NP 3 [facility] [address] [place] [address] documented as of this encounter Visit Diagnoses Not on filedocumented in this encounter Additional Health Concerns Infection Onset Date Last Indicated Resolved Time Respiratory Rule-Out 10/18/2024 10/18/2024 025 4:46 PM BRICK SHADER Assessment Noted Time PHQ-9 Depression Total Score: 0 05/12/20 22 2:48 PM CDT documented as of this encounter Care Teams Houseperson Relationship Specialty [place] [address] [facility]. [address] [place] [id number] PCP - General FAMILY PRACTICE 05/12/22 documented as of this encounter
--- OUTSIDE RECORDS SUMMARY | 2024-12-22 15:02 | XMS_ITS | Encounter Summary ---
Author Organization [facility] Address [address] [place] [address] Care Team Providers Care Ripening Room Attendant Name Role Phone Araceli Bartlett MD Primary Care Provider [phone] Encounter Details Date Type Department Care Team (Late Contact Info) Description 06/07/2023 [employer] [facility] Provider Action Needed Social History Tobacco Use Types Packs/Day Years Used Date Smoking Tobacco: Never Smokeless Tobacco: Never Alcohol Use Standard Drinks/Week Comments Never 0 (1 standard drink = 0.6 oz pur e alcohol) PHQ-2 Answer Date Recorded Patient Health Questionnaire-2 Score 0 01/05/2023 Comments No Sex and Gender Information Value Date Recorded Sex Assigned at Female 09/20/2024 2:28 PM PRODUCE SPECIALIST Legal Sex Female 7:13 PM CDT Gender Identity Female 09/25/2024 3:57 PM PRODUCE SPECIALIST Sexual Orientation Not on file documented as of this encounter Plan of Treatment Upcoming Encounters Date Type Department Care Team (Late Contact Info) Description 12/27/2024 3:40 PM CDT Office Visit [facility] Medical Group Family & Internal Medicine [address] [phone] Araceli Bartlett MD [address] [place] [address]. [address] [place] [address] 01/11/2025 9:40 AM CDT Office Visit [facility] Medical Group Multispecialty Care - [facility] [address] [facility], [address] [place] [address] Taylor Zamora, SANDY [address] [facility] [address] [place] [address] documented as of this encounter Visit Diagnoses Not on filedocumented in this encounter Additional Health Concerns Infection Onset Date Last Indicated Resolved Time Respiratory Rule-Out 10/18/2024 10/18/2024 025 4:46 PM PRODUCE SPECIALIST Assessment Noted Time PHQ-9 Depression Total Score: 0 05/12/20 22 2:48 PM CDT documented as of this encounter Care Teams Ripening Room Attendant Relationship Specialty Start [place] [address] [address] [place] [address] PCP - General FAMILY PRACTICE 05/12/22 documented as of this encounter
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
== END 2024-12-22 08:34 | disposition home or self-care (01) ==
PROVIDERS: Emergency Provider Physician Assistant; PCP Family Medicine
DX: F10.129 Alcohol abuse with intoxication, unspecified (principal); Y90.6 Blood alcohol level of 120-199 mg/100 ml; T74.11XA Adult physical abuse, confirmed, initial encounter; S09.90XA Unspecified injury of head, initial encounter; Y07.010 Husband, current, perpetrator of maltreatment and neglect; G40.909 Epilepsy, unspecified, not intractable, without status epilepticus; F41.1 Generalized anxiety disorder; Z79.899 Other long term (current) drug therapy; Y08.89XA Assault by other specified means, initial encounter
CPT/HCPCS: 36415; 70450; 71045; 72125; 80053; 80307; 81003; 82077; 82550; 84443; 84484; 85025; 93005; 96374; 99284; A9270; J2060